=== PATIENT | female | born 1970 | race Caucasian/White ===

== ENCOUNTER 2016-06-19 19:09 | Emergency (ER) | payer OTHER ==
[~2016-06-19] VITALS: Ht 170.2 cm; Wt 113.6 kg
[~2016-06-19 19:09] MED LIST: CEFTIN500 MG PO; FENTANYL 25 MCG TP; FENTANYL 75MCG TOP; FLEXERIL10 MG PO; HYDROXYZINE PO; LITHONATE300 MG PO; MAGNESIUM OXIDE; MVI; PERCOCET 325 MG1 TA2 PO; PREDNISONE20 MG PO; SAVELLA50 MG PO; WELLBUTRIN PO
[2016-06-19 19:12] VITALS: TEMP 98.6
[2016-06-19] MEDS ORDERED: NORCO 325 MG-7.1 TAB PO (21:34)
[2016-06-19 21:43] VITALS: BP 134/87; PULSE 87
== END 2016-06-19 21:43 | disposition home or self-care (01) ==
LOC: COL.ER 19:09
DX: M25.552 Pain in left hip (principal)
CPT/HCPCS: J1885

== ENCOUNTER 2016-09-01 10:07 | Emergency (ER) | payer OTHER ==
[~2016-09-01] VITALS: Ht 170.2 cm; Wt 100.0 kg
[~2016-09-01 10:07] MED LIST changes: +NORCO 325 MG-7.1 TAB PO
[2016-09-01 10:14] VITALS: BP 150/100; PULSE 71; TEMP 98
[2016-09-01 11:56] LABS: PH 6 (5-8); SQUAMOUS EPITHELIAL 0-2 /hpf; URINE APPEARANCE Clear; URINE BACTERIA None Seen /hpf; URINE BILIRUBIN Negative (NEGATIVE); URINE BLOOD Negative (NEGATIVE); URINE COLOR Straw; URINE GLUCOSE Negative (NEGATIVE); URINE KETONE Negative (NEGATIVE); URINE RBC 0-2 /hpf; URINE UROBILINOGEN Negative (NEGATIVE); URINE WBC 0-2 /hpf
== END 2016-09-01 12:35 | disposition home or self-care (01) ==
LOC: COL.ER 10:07
PROVIDERS: Family Medicine
DX: S40.012A Contusion of left shoulder, initial encounter (principal); S70.02XA Contusion of left hip, initial encounter; Y04.2XXA Assault by strike against or bumped into by another person, initial encounter; Y92.810 Car as the place of occurrence of the external cause

== ENCOUNTER 2018-01-18 06:00 | Emergency (ER) | payer SELFPAY ==
[~2018-01-18] VITALS: Ht 170.2 cm; Wt 105.6 kg
[2018-01-18 06:02] VITALS: TEMP 98.1
[2018-01-18] MEDS ORDERED: ZITHROMAX 250M250 MG PO (06:58)
[2018-01-18 07:35] VITALS: BP 129/79; PULSE 83
[2018-01-18] MEDS ORDERED: DOXYCYCLINE 10100 MG PO (07:39)
== END 2018-01-18 07:35 | disposition home or self-care (01) ==
LOC: COL.ER 06:00
DX: J20.9 Acute bronchitis, unspecified (principal); M79.7 Fibromyalgia; F17.210 Nicotine dependence, cigarettes, uncomplicated

== ENCOUNTER 2018-01-31 17:35 | Observation (INO) | payer SELFPAY ==
[~2018-01-31] VITALS: Ht 170.2 cm; Wt 102.5 kg
[~2018-01-31 17:35] MED LIST changes: +DOXYCYCLINE 10100 MG PO; -HYDROXYZINE PO; +VISTARIL 2525 MG/CAP PO; +ZITHROMAX 250M250 MG PO
[2018-01-31 18:04] LABS: BASO # 0.1 (0.0-0.2); BASO % 0.4 % (0.0-2.0); EOS # 0.2 (0.0-0.7); EOS % 1.2 % (0-4.0); GRAN # 13.7 (1.4-6.5); GRAN % 83.3 % (42.2-75.2); HEMATOCRIT 37.9 % (37.0-47.0); HEMOGLOBIN 12.4 g/dl (12.5-16.0); LYMPH # 1.6 (1.2-3.4); LYMPH % 9.8 % (20.0-51.0); MEAN CELL VOLUME 94 fl (80.0-100.0); MEAN CORPUSCULAR HEMOGLOBIN 31 pg (27.0-31.0); MEAN CORPUSCULAR HGB CONC 33 g/dl (33.0-37.0); MEAN PLATELET VOLUME 10.8 fl (7.4-10.4); MONO # 0.7 (0.1-0.6); MONO % 4.3 % (1.7-9.3); PLATELET COUNT 298 K/mm3 (130-400); RED BLOOD COUNT 4.02 M/mm3 (4.10-5.30); REDCELL DISTRIBUTION WIDTH-CV 14.5 % (11.5-14.5)
[2018-01-31 18:16] LABS: BILIRUBIN,TOTAL 0.3 mg/dL (0.0-1.0); CALCIUM 8.2 mg/dL (8.4-10.2); CREATININE, serum 0.81 mg/dL (0.52-1.25); POTASSIUM 3.6 mmol/L (3.4-5.0)
[2018-01-31] MEDS ORDERED: LASIX 20MG TABL20 MG PO (18:17)
[2018-01-31 20:06] LABS: TRICYCLIC ANTIDEPRESS URINE NEGATIVE
[2018-01-31 22:13] VITALS: BP 103/49; PULSE 67; TEMP 98.5
[2018-02-01 04:00] VITALS: BP 110/57; PULSE 79; TEMP 98
[2018-02-01 06:57] LABS: HEMOGLOBIN 11.6 g/dl (12.5-16.0); MEAN CELL VOLUME 96 fl (80.0-100.0); MEAN CORPUSCULAR HEMOGLOBIN 31 pg (27.0-31.0); MEAN CORPUSCULAR HGB CONC 32 g/dl (33.0-37.0); MEAN PLATELET VOLUME 11.3 fl (7.4-10.4); PLATELET COUNT 248 K/mm3 (130-400); RED BLOOD COUNT 3.76 M/mm3 (4.10-5.30); REDCELL DISTRIBUTION WIDTH-CV 14.7 % (11.5-14.5)
[2018-02-01 07:05] LABS: CALCIUM 7.9 mg/dL (8.4-10.2); CREATININE, serum 0.73 mg/dL (0.52-1.25); POTASSIUM 3.9 mmol/L (3.4-5.0)
[2018-02-01 08:21] VITALS: BP 99/55; PULSE 64; TEMP 98.4
[2018-02-01 11:25] VITALS: BP 103/60; PULSE 71; TEMP 98.5
[2018-02-01 15:59] VITALS: BP 118/74; PULSE 67; TEMP 98.5
[2018-02-01] MEDS ORDERED: NEURONTIN100 MG/CAP PO (16:11)
[2018-02-01] MEDS ORDERED: AMITRIPTYLINE H25 M1 PO (16:12)
[2018-02-01 22:09] VITALS: BP 112/69; PULSE 78; TEMP 98.4
[2018-02-02 04:00] VITALS: BP 125/71; PULSE 86; TEMP 98.7
[2018-02-02 08:07] VITALS: BP 128/67; PULSE 67; TEMP 98.5
[2018-02-02 12:33] VITALS: BP 122/69; PULSE 75; TEMP 98.6
[2018-02-02 16:13] VITALS: BP 124/65; PULSE 70
[2018-02-02 19:38] VITALS: BP 11/63; BP 111/63; PULSE 64; TEMP 98.2
[2018-02-03 00:06] VITALS: BP 123/71; PULSE 74; TEMP 98.2
[2018-02-03 03:55] VITALS: BP 136/72; PULSE 70; TEMP 98.5
[2018-02-03 07:53] VITALS: BP 125/75; PULSE 46; TEMP 98.3
[2018-02-03 11:09] VITALS: BP 102/73; PULSE 83; TEMP 97.9
== END 2018-02-03 13:55 | disposition home or self-care (01) ==
LOC: COL.ER 17:35 → SURG 20:01
PROVIDERS: Family Medicine; Surgery
DX: S22.32XA Fracture of one rib, left side, initial encounter for closed fracture (principal); S22.31XA Fracture of one rib, right side, initial encounter for closed fracture; S54.21XA Injury of radial nerve at forearm level, right arm, initial encounter; S27.322A Contusion of lung, bilateral, initial encounter; S06.0X0A Concussion without loss of consciousness, initial encounter; J93.9 Pneumothorax, unspecified; N84.0 Polyp of corpus uteri; D73.4 Cyst of spleen; G89.29 Other chronic pain; F17.210 Nicotine dependence, cigarettes, uncomplicated; V69.9XXA Occupant (driver) (passenger) of heavy transport vehicle injured in unspecified traffic accident, initial encounter
CPT/HCPCS: A9284; G0378; G8981-GO; J1170; J1650; J2405; J7030; J7120; Q9967

== ENCOUNTER 2021-07-15 22:26 | Emergency (ER) | payer SELFPAY ==
[~2021-07-15] VITALS: Ht 167.6 cm; Wt 111.4 kg
[~2021-07-15 22:26] MED LIST changes: +AMITRIPTYLINE H25 M1 PO; +FLEXERIL 1010 MG/TAB PO; +LASIX 20MG TABL20 MG PO; +NEURONTIN100 MG/CAP PO; +NEURONTIN300 MG/CAP PO; +PRILOTC PO; +ZOFRAN 4MG T4 MG/TAB PO
[2021-07-15 22:37] VITALS: TEMP 97.2
[2021-07-15 23:04] LABS: BASO % 0.3 % (0.0-2.0); EOS # 0.2 K/mm3 (0.0-0.7); EOS % 2.3 % (0.0-4.0); GRAN # 6.7 K/mm3 (1.4-6.5); GRAN % 70.3 % (42.2-75.2); HEMATOCRIT 37.5 % (37.0-47.0); HEMOGLOBIN 12.6 g/dl (12.5-16.0); LYMPH # 1.8 K/mm3 (1.2-3.4); LYMPH % 18.5 % (20.0-51.0); MEAN CELL VOLUME 95 fl (80.0-100.0); MEAN CORPUSCULAR HEMOGLOBIN 32 pg (27-31); MEAN CORPUSCULAR HGB CONC 34 g/dl (33.0-37.0); MEAN PLATELET VOLUME 10.5 fl (7.4-10.4); MONO # 0.8 K/mm3 (0.1-0.6); MONO % 8.3 % (1.7-9.3); PLATELET COUNT 241 K/mm3 (130-400); RED BLOOD COUNT 3.97 M/mm3 (4.10-5.30); REDCELL DISTRIBUTION WIDTH-CV 13.2 % (11.5-14.5)
[2021-07-15 23:09] LABS: PROTHROMBIN TIME 11.2 SECONDS (9.7-12.8)
[2021-07-15 23:12] LABS: PARTIAL THROMBOPLASTIN TIME 33.3 SECONDS (26.0-37.0)
[2021-07-15 23:22] LABS: ALANINE AMINOTRANSFERASE 31 U/L (0-55); ALBUMIN 3.9 gm/dL (3.5-5.0); ALKALINE PHOSPHATASE 83 U/L (40-150); ANION GAP 9 mmol/L (7-16); AST,SGOT 22 U/L (5-34); BILIRUBIN,TOTAL 0.3 mg/dL (0.2-1.2); BLOOD UREA NITROGEN 14 mg/dL (10-20); CALCIUM 9.1 mg/dL (8.4-10.2); CARBON DIOXIDE 25 mmol/L (22-29); CHLORIDE 106 mmol/L (98-107); CREATININE, serum 0.88 mg/dL (0.57-1.11); GLUCOSE 123 mg/dL (70-99); POTASSIUM 3.9 mmol/L (3.5-4.5); SODIUM 140 mmol/L (136-145); TOTAL PROTEIN 7.1 gm/dL (6.2-8.1)
[2021-07-15 23:29] LABS: TROPONIN-I < 0.010 ng/mL (0.00-0.033)
[2021-07-15] MEDS ORDERED: AUGMENTIN XR 101 TER PO (23:42)
[2021-07-15] MEDS ORDERED: LASIX 20MG TABL20 MG PO (23:42)
[2021-07-15] MEDS ORDERED: ZITHROMAX Z PA250 MG PO (23:42)
[2021-07-16 00:06] VITALS: BP 148/96; PULSE 78
== END 2021-07-16 00:06 | disposition home or self-care (01) ==
LOC: COL.ER 22:26
PROVIDERS: Emergency Medicine
DX: J18.9 Pneumonia, unspecified organism (principal); R60.0 Localized edema; R79.89 Other specified abnormal findings of blood chemistry; M79.7 Fibromyalgia; F17.200 Nicotine dependence, unspecified, uncomplicated; Z20.822 Contact with and (suspected) exposure to COVID-19; Z79.899 Other long term (current) drug therapy